=== PATIENT | male | born 1980 | race Caucasian/White ===

== ENCOUNTER 2018-04-08 18:58 | Emergency (ER) | payer MEDICAID, OTHER ==
[~2018-04-08] VITALS: Ht 167.6 cm; Wt 80.5 kg
[~2018-04-08 18:58] MED LIST: NO HOME MEDS
[2018-04-08 19:14] VITALS: BP 157/111
[2018-04-09] MEDS ORDERED: chlordiazePOXIDE 25mg capsule PO ONE (00:10)
[2018-04-09] MEDS ORDERED: CHLO25CA10 PO (00:12)
[2018-04-09] MEDS ORDERED: ketorolac trometh inj. 60 MG/2 ML VIAL IM ONE (00:20)
== END 2018-04-09 00:40 | disposition home or self-care (01) ==
LOC: ER 18:59
DX: S93.401A Sprain of unspecified ligament of right ankle, initial encounter (principal); F10.129 Alcohol abuse with intoxication, unspecified; I10 Essential (primary) hypertension; F15.90 Other stimulant use, unspecified, uncomplicated; Z88.6 Allergy status to analgesic agent; Z79.899 Other long term (current) drug therapy; Y90.9 Presence of alcohol in blood, level not specified; W22.8XXA Striking against or struck by other objects, initial encounter; Y93.89 Activity, other specified; Y92.89 Other specified places as the place of occurrence of the external cause; Y99.8 Other external cause status
CPT/HCPCS: 29515; 73610; 96372; 99284; J1885

== ENCOUNTER 2018-09-08 11:58 | Emergency (ER) | payer MEDICAID, OTHER ==
[~2018-09-08] VITALS: Ht 167.6 cm; Wt 70.0 kg
[~2018-09-08 11:58] MED LIST changes: +CHLO25CA10 PO; +GABA-532 PO
[2018-09-08] MEDS ORDERED: ondansetron/PF 4mg/2ml inj IV ONE (12:55)
[2018-09-08] MEDS ORDERED: gabapentin 300mg capsule PO ONE (12:55)
[2018-09-08] MEDS ORDERED: normal saline 1000ML IV soln IVB ONE (12:55)
[2018-09-08] MEDS ORDERED: diphenhydrAMINE 50 mg/ml inj IV ONE (12:55)
[2018-09-08 13:09] LABS: BASOPHILS % (AUTO) 0.1 % (0-1); EOSINOPHILS # (AUTO) 0.2 X10'3 (0-0.9); EOSINOPHILS % (AUTO) 1.9 % (0-6); HEMATOCRIT 50.9 % (42.0-52.0); LYMPHOCYTES # (AUTO) 1.3 X10'3 (1.1-4.8); LYMPHOCYTES % (AUTO) 11.4 % (21-51); MEAN CORPUSCULAR HEMOGLOBIN 30.6 PG (27.0-31.0); MEAN CORPUSCULAR HGB CONC 33.4 % (33.0-36.5); MEAN CORPUSCULAR VOLUME 91.8 FL (78-98); MEAN PLATELET VOLUME 9.4 FL (7.4-10.4); MONOCYTES # (AUTO) 0.6 X10'3 (0-0.9); MONOCYTES % (AUTO) 4.9 % (2-12); NEUTROPHILS # (AUTO) 9.6 X10'3 (1.8-7.7); NEUTROPHILS % (AUTO) 81.7 % (42-75); PLATELET COUNT 246 X10'3 (140-440); RED BLOOD COUNT 5.55 X10'6 (4.70-6.10); RED CELL DISTRIBUTION WIDTH 13.4 % (11.5-14.5); WHITE BLOOD COUNT 11.8 X10'3 (4.5-11.0)
[2018-09-08 13:23] LABS: ALANINE AMINOTRANSFERASE 31 U/L (12-78); ALBUMIN 4.3 G/DL (3.4-5.0); ALBUMIN/GLOBULIN RATIO 1.3 (1.1-1.5); ALKALINE PHOSPHATASE 83 IU/L (46-116); ANION GAP 9 (8-16); ASPARTATE AMINO TRANSFERASE 24 U/L (10-37); BILIRUBIN,TOTAL 0.4 MG/DL (0.1-1.0); BLOOD UREA NITROGEN 12 MG/DL (7-18); BUN/CREATININE RATIO 11.9 (5.4-32.0); CALCIUM 9.3 MG/DL (8.5-10.1); CHLORIDE 103 MMOL/L (99-107); CREATININE 1.01 MG/DL (0.60-1.10); GLUCOSE 98 MG/DL (70-104); POTASSIUM 4.3 MMOL/L (3.5-5.1); SODIUM 140 MMOL/L (135-145); TOTAL CARBON DIOXIDE 27.9 MMOL/L (24-32); TOTAL PROTEIN 7.7 G/DL (6.4-8.2); eGFR 84 ML/MIN
[2018-09-08 13:53] VITALS: BP 159/88
== END 2018-09-08 13:55 | disposition home or self-care (01) ==
LOC: ER 11:58
DX: F10.20 Alcohol dependence, uncomplicated (principal); Y90.9 Presence of alcohol in blood, level not specified; R11.2 Nausea with vomiting, unspecified; I10 Essential (primary) hypertension; G89.29 Other chronic pain; F15.90 Other stimulant use, unspecified, uncomplicated; Z88.6 Allergy status to analgesic agent; Z79.899 Other long term (current) drug therapy
CPT/HCPCS: 36415; 80053; 85025; 96361; 96374; 96375; 99283; J1200; J2405; J7030

== ENCOUNTER 2018-12-22 07:34 | Emergency (ER) | payer MEDICAID, OTHER ==
[~2018-12-22] VITALS: Ht 167.6 cm; Wt 91.3 kg
[2018-12-22 07:51] VITALS: BP 146/93
[2018-12-22 08:36] LABS: BASOPHILS # (AUTO) 0.1 X10'3 (0-0.2); BASOPHILS % (AUTO) 0.9 % (0-1); EOSINOPHILS # (AUTO) 0.1 X10'3 (0-0.9); EOSINOPHILS % (AUTO) 1.7 % (0-6); HEMATOCRIT 45.7 % (42.0-52.0); HEMOGLOBIN 15.8 g/dl (14.0-17.9); LYMPHOCYTES # (AUTO) 2.1 X10'3 (1.1-4.8); LYMPHOCYTES % (AUTO) 26.8 % (21-51); MEAN CORPUSCULAR HEMOGLOBIN 31.4 PG (27.0-31.0); MEAN CORPUSCULAR HGB CONC 34.5 g/dL (33.0-36.5); MEAN CORPUSCULAR VOLUME 91.2 FL (78-98); MONOCYTES # (AUTO) 0.6 X10'3 (0-0.9); MONOCYTES % (AUTO) 8.2 % (2-12); NEUTROPHILS # (AUTO) 4.9 X10'3 (1.8-7.7); NEUTROPHILS % (AUTO) 62.4 % (42-75); PLATELET COUNT 225 X10'3 (140-440); RED BLOOD COUNT 5.01 X10'6 (4.70-6.10); RED CELL DISTRIBUTION WIDTH 13.4 % (11.5-14.5); WHITE BLOOD COUNT 7.9 X10'3 (4.5-11.0)
[2018-12-22 08:50] LABS: ALANINE AMINOTRANSFERASE 29 U/L (12-78); ALBUMIN 3.8 G/DL (3.4-5.0); ALBUMIN/GLOBULIN RATIO 1.2 (1.1-1.5); ALKALINE PHOSPHATASE 86 IU/L (46-116); ANION GAP 7 (8-16); ASPARTATE AMINO TRANSFERASE 27 U/L (10-37); BILIRUBIN,TOTAL 0.2 MG/DL (0.1-1.0); BLOOD UREA NITROGEN 13 MG/DL (7-18); BUN/CREATININE RATIO 15.9 (5.4-32.0); CALCIUM 8.4 MG/DL (8.5-10.1); CHLORIDE 108 MMOL/L (99-107); CREATININE 0.82 MG/DL (0.60-1.10); GLUCOSE 96 MG/DL (70-104); SODIUM 144 MMOL/L (135-145); TOTAL CARBON DIOXIDE 29.4 MMOL/L (24-32); TOTAL PROTEIN 6.9 G/DL (6.4-8.2); eGFR > 90 ML/MIN
[2018-12-22 08:51] LABS: CLARITY,URINE CLEAR (Clear); COLOR,URINE YELLOW (Yellow); GLUCOSE, URINE NEGATIVE (Neg); KETONES,URINE NEGATIVE (Neg); LEUKOCYTE ESTERASE ,URINE NEGATIVE (Neg); NITRITES, URINE NEGATIVE (Neg); OCCULT BLOOD,URINE NEGATIVE (Neg); PROTEIN,URINE NEGATIVE (Neg); UROBILINOGEN,URINE 0.2 E.U/dL (0.2-1.0)
[2018-12-22 08:52] LABS: UA COLLECTION TYPE CLN CATCH MIDSTREAM
[2018-12-22 08:59] LABS: ETHANOL 0.112 GM/DL (0.0-0.010)
[2018-12-22 09:02] LABS: URINE AMPHETAMINE SCREEN NEGATIVE (Neg); URINE BARBITUATE SCREEN NEGATIVE (Neg); URINE BENZODIAZEPINES SCREEN NEGATIVE (Neg); URINE CANNABINOID SCREEN POSITIVE (Neg); URINE COCAINE SCREEN NEGATIVE (Neg); URINE METHADONE SCREEN NEGATIVE (Neg); URINE OPIATE SCREEN NEGATIVE (Neg); URINE PHENCYCLIDINE SCREEN NEGATIVE (Neg)
[2018-12-22] MEDS ORDERED: ondansetron 4mg rapidly disintigrating tab PO ONE (09:10)
--- NOTE | 2018-12-22 09:57 | NUR ---
PT IS SLEEPING LAYING SUPINE, RESPIRATIONS EVEN AND UNLABORED. PT DOES NOT WANT TO TALK RIGHT NOW UNABLE TO DO FULL ASSESSMENTS AT THIS TIME.
--- NOTE | 2018-12-22 11:29 | NUR ---
RAJESH FOFANA FROM [facility] AT PT BEDSIDE REQUESTING TO TALK TO PT, PT REFUSED.
--- NOTE | 2018-12-22 12:44 | NUR ---
PT IS LAYING SUPINE WITH BLANKET OVER THE TOP OF HIS HEAD. PT IS REFUSING TO TALK AT THIS TIME.
--- NOTE | 2018-12-22 13:31 | NUR ---
RAJESH FOFANA CALLED, PT REPORTS THAT HE IS READY TO SPEAK WITH PA.
== END 2018-12-22 17:52 ==
LOC: ER 07:35
DX: F32.9 Major depressive disorder, single episode, unspecified (principal); R45.851 Suicidal ideations; F10.129 Alcohol abuse with intoxication, unspecified; R11.0 Nausea; I10 Essential (primary) hypertension; G89.29 Other chronic pain; F41.9 Anxiety disorder, unspecified; F15.90 Other stimulant use, unspecified, uncomplicated; Z88.6 Allergy status to analgesic agent; Y90.9 Presence of alcohol in blood, level not specified
CPT/HCPCS: 36415; 80053; 80305; 80320; 81003; 84443; 85025; 99284; 99285

== ENCOUNTER 2019-02-10 02:20 | Emergency (ER) | payer MEDICAID, OTHER ==
[~2019-02-10] VITALS: Ht 167.6 cm; Wt 90.0 kg
[2019-02-10] MEDS ORDERED: normal saline 1000ml 1,000 ML IVB ONE (02:31)
[2019-02-10] MEDS ORDERED: ondansetron/PF 4mg/2ml inj IV STA (03:09)
[2019-02-10 03:15] LABS: ALANINE AMINOTRANSFERASE 44 U/L (12-78); ALBUMIN 4.2 G/DL (3.4-5.0); ALBUMIN/GLOBULIN RATIO 1.6 (1.1-1.5); ALKALINE PHOSPHATASE 79 IU/L (46-116); AMYLASE 42 U/L (25-115); ANION GAP 15 (8-16); ASPARTATE AMINO TRANSFERASE 28 U/L (10-37); BILIRUBIN,TOTAL 0.5 MG/DL (0.1-1.0); BLOOD UREA NITROGEN 13 MG/DL (7-18); BUN/CREATININE RATIO 16.3 (5.4-32.0); CALCIUM 8.8 MG/DL (8.5-10.1); CHLORIDE 104 MMOL/L (99-107); GLUCOSE 75 MG/DL (70-104); LIPASE 93 U/L (73-393); POTASSIUM 3.9 MMOL/L (3.5-5.1); SODIUM 142 MMOL/L (135-145); TOTAL CARBON DIOXIDE 22.6 MMOL/L (24-32); TOTAL PROTEIN 6.8 G/DL (6.4-8.2); eGFR > 90 ML/MIN
[2019-02-10 03:17] LABS: BASOPHILS % (AUTO) 0.3 % (0-1); EOSINOPHILS % (AUTO) 0.3 % (0-6); HEMOGLOBIN 14.9 g/dl (14.0-17.9); LYMPHOCYTES # (AUTO) 1.9 X10'3 (1.1-4.8); MEAN CORPUSCULAR HEMOGLOBIN 30.4 PG (27.0-31.0); MEAN CORPUSCULAR HGB CONC 33.2 g/dL (33.0-36.5); MEAN CORPUSCULAR VOLUME 91.7 FL (78-98); MEAN PLATELET VOLUME 10.6 FL (7.4-10.4); MONOCYTES # (AUTO) 0.8 X10'3 (0-0.9); MONOCYTES % (AUTO) 5.5 % (2-12); NEUTROPHILS % (AUTO) 80.9 % (42-75); PLATELET COUNT 230 X10'3 (140-440); RED BLOOD COUNT 4.91 X10'6 (4.70-6.10); RED CELL DISTRIBUTION WIDTH 13.2 % (11.5-14.5); WHITE BLOOD COUNT 14.8 X10'3 (4.5-11.0)
[2019-02-10 03:18] LABS: CLARITY,URINE CLEAR (Clear); COLOR,URINE YELLOW (Yellow); GLUCOSE, URINE NEGATIVE (Neg); KETONES,URINE 40 mg/dl (Neg); LEUKOCYTE ESTERASE ,URINE NEGATIVE (Neg); NITRITES, URINE NEGATIVE (Neg); OCCULT BLOOD,URINE NEGATIVE (Neg); PH,URINE 5.5 (4.8-8.0); PROTEIN,URINE NEGATIVE (Neg); UROBILINOGEN,URINE 0.2 E.U/dL (0.2-1.0)
[2019-02-10 03:24] LABS: INR 1.1 INR
[2019-02-10] MEDS ORDERED: ONDA4TAB6 PO (03:29)
[2019-02-10] MEDS ORDERED: normal saline 1000ML IV soln IVB ONE (03:30)
[2019-02-10 03:36] LABS: UA COLLECTION TYPE CLN CATCH MIDSTREAM
[2019-02-10 03:57] VITALS: BP 145/67
--- NOTE | 2019-02-10 04:00 | NUR ---
when hanging his second liter of fluid he said he was hallucinating, seeing 'red ribbons'
--- NOTE | 2019-02-10 04:05 | NUR ---
AWARE OF "RIBBONS." CONSULTED WITH MD CARBAJAL. NO ORDERS EXPECTED
[2019-02-10 04:40] LABS: PLATELET ESTIMATE NORMAL
[2019-02-10 04:41] LABS: LARGE PLATELETS FEW
== END 2019-02-10 04:26 | disposition home or self-care (01) ==
LOC: ER 02:21
DX: K52.9 Noninfective gastroenteritis and colitis, unspecified (principal); I10 Essential (primary) hypertension; G89.29 Other chronic pain; R79.1 Abnormal coagulation profile; F15.90 Other stimulant use, unspecified, uncomplicated; Z88.8 Allergy status to other drugs, medicaments and biological substances; Z79.899 Other long term (current) drug therapy
CPT/HCPCS: 36415; 80053; 81003; 82150; 83690; 85025; 85610; 96361; 96374; 99283; J2405; J7030

== ENCOUNTER 2025-09-06 11:39 | Emergency (ER) | payer MEDICAID, OTHER ==
[~2025-09-06] VITALS: Ht 170.2 cm; Wt 96.3 kg
[~2025-09-06 11:39] MED LIST changes: +ONDA4TAB6 PO
--- NOTE | 2025-09-06 11:46 | ELECTROCARDIOGRAPH REPORT ---
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 Yared Izquierdo Measurements Intervals [place] Rate: 72 P: 44 HI: 144 QRS: 19 QRSD: 96 T: 34 QT: 374 QTc: 410 Interpretive Statements Sinus rhythm Consider left atrial enlargement Left ventricular hypertrophy Electronically Signed On 09-07-2025 7:00:[address] Yared Izquierdo Please click the below link to view image of tracing.
[2025-09-06 12:07] LABS: MEAN PLATELET VOLUME 9.4 FL (7.4-10.4); RED CELL DISTRIBUTION WIDTH 14.3 % (11.5-14.5)
--- NOTE | 2025-09-06 12:15 | RADIOLOGY REPORT ---
CHEST RADIOGRAPH Indication: CP Technique: Single frontal view of the chest was obtained Comparison: None FINDINGS: Lines and Tubes: None Lungs: left lower lobe opacity may reflect atelectasis however early stages of pneumonia not excluded. Pleura: No effusion. No pneumothorax. Cardiomediastinal contours: Unremarkable Bones: No acute osseous abnormality. IMPRESSION: 1. Left lower lobe opacity may reflect atelectasis however early stages of pneumonia not excluded.
[2025-09-06 12:20] VITALS: TEMP 97.1
[2025-09-06 12:31] LABS: CREATININE 0.90 MG/DL (0.60-1.10); PRO BRAIN NATRIURETIC PEPTIDE < 30 PG/ML (0-125); TOTAL CARBON DIOXIDE 28.6 MMOL/L (24-32); eCRCL 99 ML/MIN; eGFR > 90 ML/MIN
--- NOTE | 2025-09-06 12:40 | Physician Documentation ---
History of Present Illness ~ Chief Complaint: Chest Pain Stated Complaint: CP Time Seen by MD: 12:18 Primary Medical Doctor: WILIAN TATE Mode of Arrival: POV HPI 45-year-old male who presents to the emergency department with complaint of chest wall tightness for two days. No rachel shortness a breath or reported cough or fever. No recent hospitalizations however has had recent travels. Does vape occasional cannabis use otherwise does not smoke routinely. Denies myalgias, dyspnea on exertion or dependent edema. Medication Reconciliation Allergies: Coded Allergies: lorazepam (Verified Allergy, Mild, vomiting, 09/06/25) Scheduled Doxycycline Monohydrate (Doxycycline Monohydrate), 100 MG PO BID Gabapentin (Gabapentin), 1 CAP PO TID Ondansetron Hcl (Zofran), 1 TAB PO Q8H Scheduled PRN Albuterol Sulfate (Ventolin Hfa), 2 PUFFS INH Q4HPRN PRN for wheezing Chlordiazepoxide Hcl (Librium), 25 MG PO Q8HPRN PRN for alcohol withdrawal albuterol inhaler (Pro-Air Inhaler), 1-2 PUFFS PO Q4H PRN for shortness of breath Miscellaneous Medications Home Med List (No Home Medications), (Reported) Discontinued Medications Albuterol Sulfate (Ventolin Hfa), 2 PUFFS INH Q4HPRN Discontinued Reason: Prescription changed Past Medical History Past Medical History: Hypertension, Chronic Back Pain, Anxiety, Depression Past Surgical History: noncontributory Alcohol Use: Abuse Drug Use: methamphetamine Lives In: Home Review of Systems All Other Systems at this time: Reviewed and Negative Constitutional: Reports: see HPI Physical Exam Vital Signs: RN Vital Signs have been reviewed: Yes, Temperature: 97.1, Heart Rate: 71, Respiratory Rate: 17, BP: 145/89, Pulse Oximetry: 97, Weight: 96.300 Oxygen Flow Rate: 0 General Appearance: alert, WD/WN, no apparent distress EENT: normal ENT inspection Neck: normal inspection Respiratory: decreased breath sounds (Decreased forced expiratory volume) Chest: no accessory muscle use Cardiovascular: normal peripheral pulses, regular rate, rhythm, no edema, no gallop, no JVD, no murmur Gastrointestinal: non-tender Extremities: normal inspection Neurologic: oriented x4 Psychiatric: normal mood/affect Skin: normal color Progress Results/Orders Results/Orders Orders - LILLIAN DONNELLY Svn Treatment (09/06/25 13:13) Completed Orders - LILLIAN DONNELLY PAC Albuterol 2.5mg/3ml Nebule (Proventil 2. (09/06/25 12:25) * Rt Notification Q1H (09/06/25 12:23) Medications Received in ER Medications (Trade) Dose Ordered Sig/Lynn Route PRN Reason Start Time Stop Time Status Last Admin Dose Admin (Proventil 2.5 MG/3ML nebule) 2.5 mg ONCE ONCE NEB 09/06/25 12:25 09/06/25 12:26 DC 09/06/25 13:22 2.5 MG Vital Signs 09/06/25 09/06/25 09/06/25 09/06/25 11:50 12:20 12:20 12:20 Temp 97.1 97.1 Pulse 75 71 Resp 18 18 17 B/P (MAP) 159/78 145/89 (107) Pulse Ox 97 97 97 O2 Delivery Room Air* O2 Flow Rate 0 0 0 FiO2 21 21 09/06/25 09/06/25 09/06/25 09/06/25 13:22 13:30 13:53 14:14 Pulse 74 89 66 69 Resp 16 14 16 12 B/P (MAP) 156/93 (114) 142/82 Pulse Ox 99 99 99 99 O2 Delivery Room Air* Room Air* O2 Flow Rate 0 0 0 FiO2 21 21 Laboratory Tests Test 09/06/25 11:49 09/06/25 13:50 White Blood Count 9.1 Red Blood Count 5.22 Hemoglobin 15.5 Hematocrit 45.9 Mean Corpuscular Volume 87.9 Mean Corpuscular Hemoglobin 29.8 Mean Corpuscular Hemoglobin Concent 33.9 Red Cell Distribution Width 14.3 Platelet Count 231 Mean Platelet Volume 9.4 Neutrophils (%) (Auto) 76.0 H Lymphocytes (%) (Auto) 12.9 L Monocytes (%) (Auto) 10.0 Eosinophils (%) (Auto) 0.7 Basophils (%) (Auto) 0.4 Neutrophils # (Auto) 6.9 Lymphocytes # (Auto) 1.2 Monocytes # (Auto) 0.9 Eosinophils # (Auto) 0.1 Basophils # (Auto) 0.0 CBC Comment Sodium Level 138 Potassium Level 4.0 Chloride Level 104 Carbon Dioxide Level 28.6 Anion Gap 5 L Blood Urea Nitrogen 15 Creatinine 0.90 Estimated GFR/1.73 m2 > 90 BUN/Creatinine Ratio 16.7 Glucose Level 97 Calcium Level 8.6 Troponin I High Sensitivity 7 7 Pro-B-Type Natriuretic Peptide < 30 Albumin 4.0 Chemistry Comments Troponin I High Sens Percent Delta 0 Troponin I Hi Sens Absolute Change 0 Medical Decision Making Additional information obtaine: N/A Findings Examination history warrants x-ray, EKG and laboratory UA screening. Chest x- ray was suspicious findings of a right lower lobe developing pneumonia. EKG normal sinus rhythm without ectopy. Laboratory screening unremarkable other than a mild left shift for may be consistent with x-ray findings. Presently low suspicion for acute coronary syndrome yet likely that of viral syndrome/respiratory etiology. We will trial albuterol to be both diagnostic and therapeutic in the emergency department for a pneumonitis likely inflammatory and infectious in etiology.. Patient reports much relief after receiving albuterol. Improved forced expiratory volume. We will discharge with the albuterol and doxycycline. Patient understands the importance of follow up 10-14 days and/or return to the emergency department if symptoms worsen in the interim. Heart Score: 0 Differential Dx:Considerations: Include: angina, aortic dissection, chest wall pain, cholelithiasis, CHF, costochondritis, esophageal reflux/spasm, gastritis, herpes zoster, myocardial infarction, pericarditis, pleuritis, pancreatitis, pneumonia, pneumothorax, pulmonary embolus, other Departure Disposition: 01 HOME / SELF CARE / HOMELESS Impression: Primary Impression: Pneumonitis Condition: Improved Additional Instructions: Please begin antibiotic and albuterol as directed. Please follow up with the primary care physician in 1-2 weeks for repeated chest x-ray and reassessment. Thank you for visiting in the emergency department [facility]. Referrals: NO PRIMARY CARE PROVIDER (PCP) Prescriptions Albuterol Sulfate (Ventolin Hfa) 90 Mcg Hfa.aer.ad 2 PUFFS INH Q4HPRN PRN for wheezing for 30 Days, #18 GM 0 Refills Prov: LILLIAN DONNELLY 09/06/25 albuterol inhaler (Pro-Air Inhaler) 8.5 Gm Inhaler 1-2 PUFFS PO Q4H PRN for shortness of breath, #1 INH Prov: LILLIAN DONNELLY 09/06/25 Doxycycline Monohydrate (Doxycycline Monohydrate) 100 Mg Capsule 100 MG PO BID, #14 CAP may sub doxycycline hyclate or azithromycin z-pack as prescribed Prov: LILLIAN DONNELLY PAC 09/06/25 Education Educated: Patient Educated regarding: diagnosis, treatment, prognosis, need for follow up Signature Scribe Signature: . Attestation: . LILLIAN DONNELLY PAC Sep 06, 2025 12:40
[2025-09-06 13:22] VITALS: PULSE 74; RESP 16; O2SAT 99
[2025-09-06] MEDS: albuterol 2.5 MG/3 ML nebule NEB ONE (13:22)
[2025-09-06 13:30] VITALS: PULSE 89; RESP 14; O2SAT 99
[2025-09-06] MEDS ORDERED: ALBU18HF2 INH (14:05)
[2025-09-06] MEDS ORDERED: DOXY100C43 PO (14:05)
[2025-09-06 14:14] VITALS: BP 142/82; PULSE 69; RESP 12; O2SAT 99
[2025-09-06] MEDS ORDERED: ALBU8HFA PO (14:53)
== END 2025-09-06 14:25 | disposition home or self-care (01) ==
LOC: ER 11:41
DX: J98.4 Other disorders of lung (principal); F12.90 Cannabis use, unspecified, uncomplicated; G89.29 Other chronic pain; F41.9 Anxiety disorder, unspecified; F32.A Depression, unspecified; I10 Essential (primary) hypertension; F15.90 Other stimulant use, unspecified, uncomplicated; F10.10 Alcohol abuse, uncomplicated; Z88.8 Allergy status to other drugs, medicaments and biological substances; Z79.899 Other long term (current) drug therapy; Y90.9 Presence of alcohol in blood, level not specified
CPT/HCPCS: 36415; 71045; 80048; 83880; 84484; 85025; 93005; 94640; 94760; 99285